=== PATIENT | male | born 1955 | race African-American/Black ===

== ENCOUNTER → 2016-09-03 | Outpatient (CLI) | payer BC ==
--- NOTE | 2016-09-03 13:35 | KCIC ---
MRI of the lumbar spine without contrast 09/03/2016 CLINICAL HISTORY: Chronic low back pain with left leg weakness worsening over the last year. TECHNIQUE: Unenhanced T1-weighted, T2-weighted and inversion recovery sagittal and T1-weighted and T2-weighted axial images of the lumbar spine were obtained. FINDINGS: Minimal S-shaped curvature of the thoracolumbar spine is seen. Degenerative signal changes and loss of height are seen involving the L3-4 disc. The conus medullaris is normal morphology, position, and signal characteristics. The marrow signal of the visualized bony structures is slightly heterogeneous. The L1-2 disc space is within normal limits. At the L2-3 disc space there is a mild generalized disc bulge. This is eccentric to the left. Degenerative changes are seen involving the facet joints bilaterally. There is mild to moderate ligamentum flavum hypertrophy bilaterally. The disc bulge is eccentric to the left. These findings when combined result in mild left greater than right central spinal canal stenosis. No neural foraminal stenosis is seen. At the L3-4 disc space there is a moderate generalized disc bulge. Degenerative changes are seen involving the facet joints bilaterally. There is moderate ligamentum flavum hypertrophy bilaterally. These findings when combine result in moderate to severe central spinal canal stenosis. Mild bilateral neural foraminal stenosis is seen. At the L4-5 disc space there is a mild generalized disc bulge. Degenerative changes are seen involving the facet joints bilaterally. There is moderate ligamentum flavum hypertrophy bilaterally. These findings when combined result in mild central spinal canal stenosis. No neural foraminal stenosis is seen. At the L5-S1 disc space there is a mild generalized disc bulge. Degenerative changes are seen involving the facet joints bilaterally. There is mild ligamentum flavum hypertrophy bilaterally. These findings when combined do not result in significant central spinal canal or neural foraminal stenosis. IMPRESSION: The changes of degenerative disc disease are seen throughout the lumbar spine. These findings result in mild left greater than right central spinal canal stenosis at L2-3, mild central spinal canal stenosis at L4-5 and moderate to severe central spinal canal stenosis at L3-4. Mild bilateral neural foraminal stenosis is seen at L3-4. Electronically signed by: Madi Jefferson MD (09/03/2016 1:32 PM)
== END | disposition home or self-care (01) ==
LOC: KCIC MRI 10:02
PROVIDERS: ATTEND Family Medicine
DX: M51.16 Intervertebral disc disorders with radiculopathy, lumbar region (principal); M48.06 Spinal stenosis, lumbar region; G89.29 Other chronic pain
CPT/HCPCS: 72148

== ENCOUNTER → 2017-02-19 | Day surgery (SDC) | payer BC ==
[~2017-02-19] MED LIST: LIDOCAINE 2% PF Vial for OR 5 ML VIAL.; PROPOFOL 40 ML IV
[2017-02-19] MEDS: IV RINGERS,LACTATED 1000ML 1,000 ML IV (09:06)
== END | disposition home or self-care (01) ==
LOC: ENDOS 08:30
DX: Z12.11 Encounter for screening for malignant neoplasm of colon (principal); K64.0 First degree hemorrhoids; I10 Essential (primary) hypertension; J45.909 Unspecified asthma, uncomplicated; Z87.39 Personal history of other diseases of the musculoskeletal system and connective tissue
CPT/HCPCS: 45378; J2704

== ENCOUNTER → 2018-12-29 | Outpatient (CLI) | payer BC ==
[2017-02-19 09:52] VITALS: BP 150/63
[~2018-12-29] MED LIST changes: -LIDOCAINE 2% PF Vial for OR 5 ML VIAL.; +LOSA1TAB22 PO; +MELO15TA6 PO; -PROPOFOL 40 ML IV
--- NOTE | 2018-12-30 08:41 | KCIC ---
EXAM: CT CORONARY CALCIUM SCORING. HISTORY: Coronary risk factors. Calcium scoring is requested. Hypertension. COMPARISON: None. FINDINGS: Limited noncontrast CT of the chest was performed for coronary calcium scoring. Refer to the worksheets for full detail. Coronary calcium scoring is as follows: LMA: 0. LAD: 3.7. LCX: 0. RCA: 0. PDA: 0. Total: 3.7. The included portions of the chest reveal the following. Bone windows reveal no suspicious lesions. Images of the upper abdomen reveal no acute abnormality. There are no pathologically enlarged mediastinal lymph nodes. There is no pleural or pericardial effusion. The heart is not enlarged. There is mild dependent atelectasis. IMPRESSION: 1. Coronary calcium score 3.7. *One or more of the following individualized dose reduction techniques were utilized for this examination: 1. Automated exposure control. 2. Adjustment of the mA and/or kV according to patient size. 3. Use of iterative reconstruction technique. Electronically signed by: Jacquie Hinton MD (12/30/2018 8:37 AM) [facility]
== END | disposition home or self-care (01) ==
LOC: KCIC CT 12:37
PROVIDERS: ATTEND Family Medicine
DX: Z13.6 Encounter for screening for cardiovascular disorders (principal); I10 Essential (primary) hypertension; J98.11 Atelectasis
CPT/HCPCS: 75571

== ENCOUNTER → 2020-08-29 | Outpatient (CLI) | payer BC ==
[2017-02-19 09:52] VITALS: BP 150/63
--- NOTE | 2020-08-29 08:56 | KCIC ---
EXAM: Lumbar spine MRI without contrast. HISTORY: Back pain. Left lower extremity weakness. TECHNIQUE: Multiplanar, multisequence magnetic resonance imaging of the lumbar spine was performed wi thout contrast. COMPARISON: 09/03/2016 FINDINGS: There is mild lumbar scoliosis. There is grade 1 anterolisthesis of L3 on L4, measuring 3 m m. There is grade 1 anterolisthesis of L4 on L5, measuring 5 mm. There is multilevel endplate remodel ing. There are osseous hemangiomas. There is no suspicious osseous lesion. The conus terminates at L1 . There is no fracture. At L1-L2, there is no stenosis. At L2-L3, there is a mild disc bulge and endplate remodeling. There is mild left facet arthropathy. T here is mild left foraminal stenosis. There is mild central canal stenosis. At L3-L4, there is a left extraforaminal to lateral disc protrusion superimposed on a disc bulge and endplate remodeling. There is moderate bilateral facet arthropathy. There is hypertrophy of the ligam entum flavum. There is grade 1 anterolisthesis. There is mild bilateral foraminal stenosis with abutm ent of the exiting L3 nerve roots. There is severe central canal stenosis. At L4-L5, there is a disc bulge and endplate remodeling. There is moderate bilateral facet arthropath y. There is grade 1 anterolisthesis. There is adux-iu-lffjqbep central canal stenosis. At L5-S1, there is no stenosis. IMPRESSION: 1. Multilevel degenerative change involving the lumbar spine, described in detail above. This is asso ciated with mild left foraminal and central canal stenosis at L2-L3, mild bilateral foraminal and sev ere central canal stenosis at L3-L4 and mild to moderate central canal stenosis at L4-L5. The central canal stenosis is increased at L3-L4 compared to the prior exam. 2. Grade 1 anterolisthesis of L3 on L4 and L4 and L5, increased compared to the prior exam. Electronically signed by: Holly Palencia MD (08/29/2020 8:54 AM) [id number]
--- NOTE | 2020-08-29 09:35 | KCIC ---
EXAM: XR HIP (WITH OR WITHOUT PELVIS) 1 VIEW 08/29/2020 8:32 AM CLINICAL INDICATION: Chronic hip pain COMPARISON: None TECHNIQUE: AP view of the pelvis and frog-leg lateral view of the right and left hip FINDINGS: No acute fracture. Alignment is normal. There is severe left hip joint space narrowing wit h subchondral sclerosis and cysts, large acetabular and femoral head osteophytes. Moderate joint spac e narrowing of the right hip with large humeral head osteophytes. Pubic symphysis and sacroiliac join ts are normal. IMPRESSION: Severe left and moderate right hip osteoarthrosis. Electronically signed by: Tamra Augustin MD (08/29/2020 9:33 AM) [id number]
== END ==
LOC: KCIC MRI 07:56
PROVIDERS: ATTEND Family Medicine
DX: M16.0 Bilateral primary osteoarthritis of hip (principal); M51.26 Other intervertebral disc displacement, lumbar region; M25.752 Osteophyte, left hip; M25.751 Osteophyte, right hip; M47.816 Spondylosis without myelopathy or radiculopathy, lumbar region; R29.898 Other symptoms and signs involving the musculoskeletal system; M48.061 Spinal stenosis, lumbar region without neurogenic claudication; M41.86 Other forms of scoliosis, lumbar region
CPT/HCPCS: 72148; 73521